=== PATIENT | male | born 1955 | race Caucasian/White ===

== ENCOUNTER 2018-05-30 15:56 | Outpatient (REF) | payer OTHER, SELFPAY ==
[2018-05-30 22:37] LABS: Abs Immature Grans 0.01 k/cumm (0.0-0.09); Absolute Basophil Count 0.03 k/cumm (0.0-0.2); Absolute Eosinophil Count 0.13 k/cumm (0.0-0.7); Absolute Lymphocyte Count 1.19 k/cumm (1.2-3.4); Absolute Monocyte Count 0.35 k/cumm (0.11-0.7); Basophils % 0.7; Eosinophils % 3.1; HCT 42.8 % (40.0-50.0); HGB 14.2 g/dL (13.5-17.5); Immature Grans % 0.2; Lymphocytes % 28.3; Mean Corp. HGB Concentration 33.2 g/dL (32.0-36.0); Mean Corpuscular Hemoglobin 30.7 pg (27.0-33.0); Mean Corpuscular Volume 92.6 fL (80-95); Mean Platelet Volume 10.7 fL (8.0-11.0); Monocytes % 8.3; Neutrophils % 59.4; Platelet Count 200 x1000/uL (130-400); RBC 4.62 m/cumm (4.50-6.00); RBC Distribution Width 13.4 % (11.8-14.1); White Blood Cell Count 4.21 k/cumm (4.4-10.8)
[2018-05-30 22:40] LABS: ALT 35 U/L (12-78); AST 26 U/L (15-37); Albumin 4.1 g/dL (3.4-5.0); Alkaline Phosphatase 47 U/L (46-116); Anion Gap 6.2 mmol/L (3-11); BUN 20 mg/dL (7-18); Bilirubin, Total 0.4 mg/dL (0.2-1.0); CO2 30.8 mmol/L (21.0-32.0); CREATININE 0.99 mg/dL (0.70-1.30); Calcium 9.3 mg/dL (8.5-10.1); Chloride 104 mmol/L (98-107); Glucose 92 mg/dL (70-100); Potassium 4.4 mmol/L (3.5-5.1); Sodium 141 mmol/L (136-145); Total Protein 6.7 g/dL (6.4-8.2)
[2018-06-03 10:15] LABS: PSA, Screening 0.5 ng/ml (0-4.5)
== END 2018-05-30 16:16 ==
LOC: NCHCN 15:56
PROVIDERS: PCP Nurse Practitioner; Visit Provider Nurse Practitioner
DX: Z00.00 Encounter for general adult medical examination without abnormal findings (principal); Z13.0 Encounter for screening for diseases of the blood and blood-forming organs and certain disorders involving the immune mechanism; Z13.228 Encounter for screening for other metabolic disorders; M53.3 Sacrococcygeal disorders, not elsewhere classified; Z12.5 Encounter for screening for malignant neoplasm of prostate; Z80.42 Family history of malignant neoplasm of prostate
CPT/HCPCS: 80053; 84153; 85025

== ENCOUNTER 2018-05-31 11:09 | Outpatient (CLI) | payer OTHER, SELFPAY ==
--- NOTE | 2018-05-31 11:20 | DI.RAD_ITS ---
SYMPTOMS/DIAGNOSIS: COCCYDYNIA, M53.3 COCCYX: No fracture, lytic or blastic bony lesion is seen. IMPRESSION: Negative coccyx.
== END 2018-05-31 11:29 ==
PROVIDERS: PCP Nurse Practitioner; Visit Provider Nurse Practitioner
DX: M53.3 Sacrococcygeal disorders, not elsewhere classified (principal)
CPT/HCPCS: 72220

== ENCOUNTER 2018-07-03 09:45 | Outpatient (REF) | payer OTHER, SELFPAY ==
[2018-07-03 13:09] LABS: Cholesterol 278 mg/dL (50-200); HDL Cholesterol 66 mg/dL (40-60); LDL CHOLESTEROL 193 mg/dL (<100); Triglyceride 127 mg/dL (30-150)
== END 2018-07-03 10:05 ==
LOC: NCHCN 09:45
PROVIDERS: PCP Nurse Practitioner; Visit Provider Family Medicine
DX: E78.5 Hyperlipidemia, unspecified (principal)
CPT/HCPCS: 80061; 83721

== ENCOUNTER 2018-11-13 11:53 | Outpatient (REF) | payer OTHER, SELFPAY ==
[2018-11-13 22:39] LABS: Calculated LDL 153; Cholesterol 230 mg/dL (50-200); HDL Cholesterol 62 mg/dL (40-60); Triglyceride 79 mg/dL (30-150)
== END 2018-11-13 12:13 ==
LOC: NCHCN 11:53
PROVIDERS: PCP Nurse Practitioner; Visit Provider Family Medicine
DX: E78.5 Hyperlipidemia, unspecified (principal)
CPT/HCPCS: 80061; 83721

== ENCOUNTER 2019-04-04 12:53 | Outpatient (REF) | payer BC, SELFPAY ==
[2019-04-04 21:15] LABS: Anion Gap 8.6 mmol/L (3-11); BUN 17 mg/dL (7-18); CO2 27.4 mmol/L (21.0-32.0); CREATININE 0.91 mg/dL (0.70-1.30); Calculated LDL 149 mg/dL; Chloride 105 mmol/L (98-107); Cholesterol 233 mg/dL (50-200); Glucose 91 mg/dL (70-100); HDL Cholesterol 54 mg/dL (40-60); Potassium 4.3 mmol/L (3.5-5.1); Sodium 141 mmol/L (136-145); Triglyceride 152 mg/dL (30-150)
[2019-04-07 11:16] LABS: PSA, Screening 0.8 ng/ml (0-4.5)
== END 2019-04-04 13:13 ==
LOC: NCHCN 12:53
PROVIDERS: PCP Nurse Practitioner; Visit Provider Family Medicine
DX: E78.5 Hyperlipidemia, unspecified (principal); Z12.5 Encounter for screening for malignant neoplasm of prostate
CPT/HCPCS: 80048; 80061; 84153

== ENCOUNTER 2019-07-10 08:25 | Outpatient (REF) | payer BC, SELFPAY ==
[2019-07-10 12:34] LABS: HCT 44.5 % (40.0-50.0); HGB 14.2 g/dL (13.5-17.5); Mean Corp. HGB Concentration 31.9 g/dL (32.0-36.0); Mean Corpuscular Hemoglobin 29.7 pg (27.0-33.0); Mean Corpuscular Volume 93.1 fL (80-95); Mean Platelet Volume 10.1 fL (8.0-11.0); Platelet Count 207 x1000/uL (130-400); RBC 4.78 m/cumm (4.50-6.00); RBC Distribution Width 13.3 % (11.8-14.1); White Blood Cell Count 3.77 k/cumm (4.4-10.8)
[2019-07-10 13:19] LABS: Hemoglobin A1C 5.6 % (3.8-5.6)
[2019-07-10 13:25] LABS: ALT 35 U/L (16-63); AST 21 U/L (15-37); Alkaline Phosphatase 50 U/L (46-116); Anion Gap 5.2 mmol/L (3-11); BUN 18 mg/dL (7-18); Bilirubin, Total 0.5 mg/dL (0.2-1.0); CO2 29.8 mmol/L (21.0-32.0); CREATININE 0.85 mg/dL (0.70-1.30); Calcium 8.7 mg/dL (8.5-10.1); Calculated LDL 155 mg/dL (<100); Chloride 107 mmol/L (98-107); Cholesterol 227 mg/dL (<200); Glucose 93 mg/dL (74-106); HDL Cholesterol 53 mg/dL (40-60); Potassium 4.5 mmol/L (3.5-5.1); Sodium 142 mmol/L (136-145); Total Protein 6.6 g/dL (6.4-8.2); Triglyceride 99 mg/dL (<150); Vitamin B12 444 pg/mL (193-986)
[2019-07-10 13:39] LABS: Vitamin D 25 Total 38.5 ng/ml (30-100)
[2019-07-11 09:16] LABS: PSA, Screening 0.7 ng/mL (0.0-4.5)
[2019-07-14 09:45] LABS: Pyridoxal 5-Phosphate (PLP), P 73 mcg/L (5-50)
== END 2019-07-10 08:45 ==
LOC: NCHCN 08:25
PROVIDERS: PCP Nurse Practitioner; Visit Provider Family Medicine
DX: Z00.00 Encounter for general adult medical examination without abnormal findings (principal); E78.5 Hyperlipidemia, unspecified; D72.819 Decreased white blood cell count, unspecified; Z12.5 Encounter for screening for malignant neoplasm of prostate; Z13.1 Encounter for screening for diabetes mellitus
CPT/HCPCS: 80053; 80061; 82306; 84153; 85027; 82607; 83036; 84207

== ENCOUNTER 2019-11-20 09:02 | Outpatient (REF) | payer BC, SELFPAY ==
[2019-11-20 21:07] LABS: Hemoglobin A1C 5.5 % (3.8-5.6)
[2019-11-20 21:25] LABS: Vitamin B12 431 pg/mL (193-986); Vitamin D 25 Total 46.7 ng/ml (30-100)
== END 2019-11-20 09:22 ==
LOC: NCHCN 09:02
PROVIDERS: PCP Family Medicine; Visit Provider Family Medicine
DX: Z00.00 Encounter for general adult medical examination without abnormal findings (principal); Z13.1 Encounter for screening for diabetes mellitus; Z13.21 Encounter for screening for nutritional disorder
CPT/HCPCS: 82306; 82607; 83036; 84207

== ENCOUNTER 2019-12-01 22:41 | Outpatient (REF) | payer BC, SELFPAY | END 2019-12-01 23:01 | LOC: NCHCN 22:41 | PROVIDERS: PCP Family Medicine; Visit Provider Family Medicine | DX: R69 Illness, unspecified (principal) | CPT/HCPCS: 80053; 80061; 84207 ==

== ENCOUNTER 2019-12-09 02:52 | Outpatient (CLI) | payer BC, SELFPAY ==
[2019-12-09 13:13] LABS: ALT 31 U/L (16-63); AST 19 U/L (15-37); Albumin 4.1 g/dL (3.4-5.0); Alkaline Phosphatase 51 U/L (46-116); Anion Gap 9.5 mmol/L (3-11); BUN 14 mg/dL (7-18); Bilirubin, Total 0.5 mg/dL (0.2-1.0); CO2 27.5 mmol/L (21.0-32.0); CREATININE 1.02 mg/dL (0.70-1.30); Calcium 8.9 mg/dL (8.5-10.1); Calculated LDL 145 mg/dL (<100); Chloride 104 mmol/L (98-107); Cholesterol 218 mg/dL (<200); Glucose 90 mg/dL (74-106); HDL Cholesterol 55 mg/dL (40-60); Potassium 4.2 mmol/L (3.5-5.1); Sodium 141 mmol/L (136-145); Total Protein 6.5 g/dL (6.4-8.2); Triglyceride 92 mg/dL (<150)
[2019-12-10 08:51] LABS: PSA, Screening 0.7 ng/mL (0.0-4.5)
[2019-12-12 11:31] LABS: Pyridoxal 5-Phosphate (PLP), P 87 mcg/L (5-50)
== END 2019-12-09 03:12 ==
PROVIDERS: PCP Family Medicine; Visit Provider Family Medicine
DX: R53.83 Other fatigue (principal); Z12.5 Encounter for screening for malignant neoplasm of prostate; Z00.00 Encounter for general adult medical examination without abnormal findings; E78.5 Hyperlipidemia, unspecified; E66.3 Overweight
CPT/HCPCS: 36415; 80053; 80061; 84153; 84207; 84443

== ENCOUNTER 2020-03-01 02:31 | Outpatient (CLI) | payer BC, SELFPAY ==
[2020-03-01 12:54] LABS: C-Reactive Protein 0.09 mg/dL (0.0-0.3)
[2020-03-04 17:23] LABS: Pyridoxal 5-Phosphate (PLP), P 15 mcg/L (5-50)
== END 2020-03-01 02:51 ==
PROVIDERS: PCP Family Medicine; Visit Provider Family Medicine
DX: R53.83 Other fatigue (principal)
CPT/HCPCS: 36415; 84207; 86140

== ENCOUNTER 2020-11-05 02:51 | Outpatient (CLI) | payer BC, SELFPAY ==
--- NOTE | 2020-11-05 | DI.MRI_ITS ---
Exam(s) MR IAC BRAIN WO/W EXAM: MR IAC BRAIN WO/W CLINICAL HISTORY: RT EAR ASYMMETRICAL HEARING LOSS,H91.8X1 TECHNIQUE: MR examination of the brain was performed according to the usual protocol with additional multi planar pre and post contrast high-resolution imaging of the region of the posterior fossa whol e brain post contrast imaging was also obtained. COMPARISON: No exams were available for comparison FINDINGS: The ventricular system is normal in appearance. There are few small areas of abnormal signal in periventricular white matter, mostly frontal, [place] age-related microvascular ischemic changes. The orbital and temporal bone structures appear intact. The internal auditory canals, semicircular c anals, and cochlea appear intact bilaterally. No abnormality of the middle ear cavity. No enhancing lesion or mass identified associated with the 8th nerves or elsewhere in the CP angle region. There is normal flow void in the vwyqal-eg-Pknaht vasculature. Diffusion-weighted imaging shows no evidence intracranial infarct. Susceptibility weighted imaging shows no evidence of intracranial hemorrhage. No enhancing lesion identified on whole brain postcontrast imaging. The pituitary is normal in size and shape as expected for age. No sellar or suprasellar mass lesion i dentified and there is no evidence of an enhancing pituitary lesion. IMPRESSION: Negative brain MRI for age, no evidence of posterior fossa or temporal bone region mass lesion or enh ancing lesion. RADIATION DOSE DELIVERED: Total DLP
[2020-11-05 14:44] LABS: Anion Gap 4.7 mmol/L (3-11); BUN 16 mg/dL (7-18); CO2 31.3 mmol/L (21.0-32.0); Calcium 8.7 mg/dL (8.5-10.1); Chloride 105 mmol/L (98-107); Glucose 89 mg/dL (74-106); Sodium 141 mmol/L (136-145)
[2020-11-05] MEDS: Normal Saline Flush 10 ML SYR IVP (15:04)
[2020-11-05] MEDS: Gadoterate meglumine 20 ML VIAL 16 ML IVP (15:05)
== END 2020-11-05 03:11 ==
PROVIDERS: PCP Family Medicine; Visit Provider Physician Assistant
DX: H91.8X1 Other specified hearing loss, right ear (principal); R90.82 White matter disease, unspecified
CPT/HCPCS: 70553; 80048

== ENCOUNTER 2020-12-02 09:25 | Outpatient (REF) | payer BC, SELFPAY ==
[2020-12-02 13:31] LABS: ALT 29 U/L (16-63); AST 22 U/L (15-37); Albumin 4.1 g/dL (3.4-5.0); Alkaline Phosphatase 49 U/L (46-116); Anion Gap 7.8 mmol/L (3-11); BUN 15 mg/dL (7-18); Bilirubin, Total 0.6 mg/dL (0.2-1.0); CO2 30.2 mmol/L (21.0-32.0); CREATININE 0.9 mg/dL (0.70-1.30); Calculated LDL 154 mg/dL (<100); Chloride 106 mmol/L (98-107); Cholesterol 234 mg/dL (<200); Glucose 90 mg/dL (74-106); HDL Cholesterol 60 mg/dL (40-60); Potassium 4.9 mmol/L (3.5-5.1); Sodium 144 mmol/L (136-145); Total Protein 6.8 g/dL (6.4-8.2); Triglyceride 101 mg/dL (<150)
[2020-12-02 22:51] LABS: PSA, Screening 0.8 ng/mL (0.0-4.5)
== END 2020-12-02 09:26 | disposition home or self-care (01) ==
LOC: NCHCN 09:25
PROVIDERS: PCP Family Medicine; Visit Provider Family Medicine
DX: Z12.5 Encounter for screening for malignant neoplasm of prostate (principal); E78.5 Hyperlipidemia, unspecified; D72.819 Decreased white blood cell count, unspecified
CPT/HCPCS: 80053; 80061; 84153

== ENCOUNTER 2022-03-31 14:17 | Outpatient (REF) | payer BC, SELFPAY ==
[2022-03-31 15:11] LABS: Anion Gap 7.5 mmol/L (3-11); BUN 15 mg/dL (7-18); CO2 29.5 mmol/L (21.0-32.0); CREATININE 0.9 mg/dL (0.70-1.30); Calcium 8.9 mg/dL (8.5-10.1); Calculated LDL 207 mg/dL (<100); Chloride 104 mmol/L (98-107); Cholesterol 296 mg/dL (<200); Estimated GFR 95.37 (mL/min/1.73m2); Glucose 95 mg/dL (74-106); HDL Cholesterol 62 mg/dL (40-60); Potassium 4.4 mmol/L (3.5-5.1); Sodium 141 mmol/L (136-145); Triglyceride 135 mg/dL (<150)
[2022-04-03 12:17] LABS: PSA, Screening 1.1 ng/mL (<=4.5)
== END 2022-03-31 14:18 | disposition home or self-care (01) ==
LOC: NCHCN 14:17
PROVIDERS: PCP Internal Medicine; Visit Provider Family Medicine
DX: E78.5 Hyperlipidemia, unspecified (principal); Z00.00 Encounter for general adult medical examination without abnormal findings; Z12.5 Encounter for screening for malignant neoplasm of prostate
CPT/HCPCS: 80048; 80061; 84153

== ENCOUNTER 2022-04-20 16:11 | Emergency (ER) | payer BC, SELFPAY ==
[2022-04-20 16:27] VITALS: BP 150/87; PULSE 60; RESP 20; TEMP 36.1; O2SAT 100
[2022-04-20 16:47] LABS: Bilirubin Negative (Negative); Blood Negative (Negative); Clarity Clear (Clear); Glucose Negative (Negative); Ketones Negative (Negative); Leukocyte Esterase Negative (Negative); Nitrite Negative (Negative); Urobilinogen 0.2 EU/dL (Up TO 0.2); pH 6.5 (5-8)
--- NOTE | 2022-04-20 17:40 | W.ED.GENAD ---
Discharge Plan Disposition Patient Disposition: HOME Condition: Stable Discharge Details Clinical Impression: Shingles Primary Care Provider: Jovany Palencia ED Provider: Liberty Olson Home Meds and New Rx's Prescriptions: New valacyclovir 1 gram tablet 1,000 mg PO TID 7 Days Qty: 21 0RF Continued hydrochlorothiazide 25 mg tablet 25 mg PO DAILY hydrocortisone [Cortisone (hydrocortisone)] 1 % cream 1 applic topical PRN PRN tamsulosin [Flomax] 0.4 mg capsule PO Label Comments: Take 1 capsule by mouth every night Discharge Instructions Instructions: Shingles (ED) Additional Instructions: Your exam appears likely consistent with shingles which is a reactivation of the chickenpox virus. This can occur when your immune system is run down the times of sleep deprivation, stress or poor nutrition. Your urinalysis sample today was normal and showed no evidence of blood or infection. Drink plenty of fluids and get plenty of rest. Alternate tylenol and motrin as needed and directed for pain. A prescription for the antiviral medication valacyclovir has been sent electronically to your pharmacy to take as directed until finished. Follow-up with your primary care doctor in 1 week. Return to the emergency department with any worsening or new concerning symptoms. Discharge Data Discharge Date/Time-TO BE ENTERED AT DEPARTURE: 04/20/22 17:50 Discharge Physician: Liberty Olson Medical Decision Making 66-year-old male presents with left-sided flank pain for the past 4 days and denies any known rash. Denies fever, urinary symptoms or cauda equina symptoms. Vitals within normal limits. Patient appears comfortable and nontoxic. He does have a small grouping of vesicles in the left lower quadrant and left lateral abdomen of which he was unaware. He has no focal deficits. He is neurovascularly intact. Suspect shingles. History of presentation does not appear consistent with nephrolithiasis, UTI or pyelonephritis. He was given 1 dose of valacyclovir here and a prescription for electronically to his pharmacy. Advised to follow up with the primary care doctor for re-evaluation. Usual and customary return precautions given prior to discharge. Medical Records Medical records reviewed: Yes I reviewed the patient's medical records. HPI General Mode of arrival: ambulatory. Date/Time Provider Initiated Documentation: 04/20/22 16:44. Limitations to Documentation: no limitations. Information obtained by: patient. HPI Narrative: Patient is a 66-year-old male presents with left-sided lower back pain for the past 4 days. Patient describes the pain as aching and constant and also notes skin sensitivity to the touch. Patient denies any known injury, fever, nausea, vomiting, chest pain, shortness breath, urinary symptoms, bowel or bladder incontinence, leg pain weakness or numbness. Patient states he has taken ibuprofen and Tylenol with minimal relief. Patient denies seeing any rash. Related Data Home Medications Medication Instructions Recorded Confirmed hydrochlorothiazide 25 mg tablet 25 mg PO DAILY 01/20/21 hydrocortisone 1 % topical cream 1 applic topical PRN PRN 01/20/21 (Cortisone (hydrocortisone)) tamsulosin 0.4 mg capsule (Flomax) cap PO 04/20/22 04/20/22 valacyclovir 1 gram tablet 1,000 mg PO TID 7 days #21 tabs 04/20/22 Previous Rx's Medication Instructions Recorded valacyclovir 1 gram tablet 1,000 mg PO TID 7 days #21 tabs 04/20/22 General Stated Complaint: FlankPain FRANCIS: 3 Review of Systems All systems reviewed & are unremarkable except as noted in HPI and below Constitutional Constitutional: Reports as per HPI, Denies chills and Denies fever(s) Eyes Eyes: Denies blurry vision ENT Ears, Nose, Mouth, and Throat: Denies dizziness, Denies sore throat and Denies throat swelling Cardiovascular Cardiovascular: Denies chest pain and Denies dyspnea Respiratory Respiratory: Denies cough and Denies dyspnea Gastrointestinal Gastrointestinal: Denies abdominal pain, Denies diarrhea and Denies vomiting Genitourinary Genitourinary: Denies hematuria and Denies dysuria Musculoskeletal Musculoskeletal: Reports back pain and Denies numbness Integumentary/Breasts Skin/Breast: Denies lesions and Denies rash Neurologic Neurologic: Denies dizziness, Denies localized weakness and Denies numbness Allergic/Immunologic Allergic/Immunologic: Denies throat swelling PFSH All Active Problems (Updated 04/20/22 @ 17:42 by Liberty Olson DO) Shingles (Acute) Vestibular neuronitis (Acute) Mixed hearing loss, unilateral (Acute) Impacted cerumen of both ears (Acute) Sensorineural hearing loss of both ears (Acute) Abnormal auditory perception (Acute) Neck pain (Acute) Asymmetrical hearing loss of right ear (Acute) Medical History (Updated 04/20/22 @ 17:42 by Liberty Olson DO) Hyperlipidemia Leukopenia Vertigo Surgical History (Updated 01/20/21 @ 09:35 by Katia Pelayo RN) History of colonoscopy with polypectomy (~09/08/14) [facility] 09/08/2014 polyp, repeat 5 years Social History Smoking/Tobacco Use Status: Never Smoking risk assessment performed?: Yes Alcohol Intake: never Substance use type: does not use Do you feel safe at home: Yes Do you feel safe in your relationship?: Yes Exam Const General: cooperative, healthy appearing and no acute distress Orientation: alert, awake and oriented x3 HENMT Head: normal to inspection Face and sinus: normal facial exam Eyes General: appearance normal, both eyes and all related structures Pupils: PERRL EOM: EOM intact bilaterally Neck Neck: normal visual inspection and No submandibular swelling Lymphatic: no lymphadenopathy noted Chest Chest: normal inspection of the chest and no tenderness Resp Effort & Inspection: normal respiratory effort and able to speak in complete sentences Auscultation: clear to auscultation bilaterally Cardio Rate: regular rate Rhythm: regular rhythm GI Inspection: normal to inspection Palpation: soft, not firm, not rigid and nontender Auscultation: hypoactive bowel sounds Male General Exam: Yes normal external exam Back/Spine/Pelvis Back: no CVA tenderness Thoracic/Lumbar Spine: thoracic and lumbar spine normal to inspection Pelvis: no pain with anterior-posterior compression Skin Full body images: 1. 1 to 2 mm erythematous cluster of small vesicles noted to the left lower quadrant. 2. There is also a 2 mm erythematous vesicle noted to the left lateral abdomen. Neuro General: patient alert, patient awake and patient oriented x3 Cognition: normal cognition Speech: speech normal Motor: muscle tone normal throughout Sensory Exam: no sensory deficits noted Extrem General: normal to inspection, full ROM, capillary refill normal, no calf tenderness bilaterally and no edema Psych Appearance: grossly normal Mental Status: mental status grossly normal Speech and Movement: speech and movement normal Affect: normal affect Course Vital Signs Vital signs: Vital Signs Temperature 96.9 F L 04/20/22 16:27 Pulse 60 04/20/22 16:27 Respiratory Rate 20 04/20/22 16:27 Blood Pressure 150/87 H 04/20/22 16:27 Pulse Oximetry 100 04/20/22 16:27 Temperature 96.9 F L 04/20/22 16:27 Temperature Source Tympanic 04/20/22 16:27 Pulse 60 04/20/22 16:27 Respiratory Rate 20 04/20/22 16:27 Respiratory Effort Non-Labored 04/20/22 17:33 Blood Pressure 150/87 H 04/20/22 16:27 Blood Pressure Position Sitting 04/20/22 16:27 Pulse Oximetry 100 04/20/22 16:27 Pain Level 5 04/20/22 16:27 Lab/Test Results Lab/Test Results: Laboratory Tests Range/Units 04/20/22 16:40 Urine Color (Yellow) Yellow Urine Clarity (Clear) Clear Urine pH (5-8) 6.5 Ur Specific [place] (1.005-1.025) 1.010 Urine Protein (Negative) mg/dL Negative Urine Ketones (Negative) mg/dL Negative Urine Blood (Negative) Negative Urine Nitrite (Negative) Negative Urine Bilirubin (Negative) Negative Urine Urobilinogen (Up TO 0.2) EU/dL 0.2 Ur Leukocyte Esterase (Negative) Negative Urine Glucose (Negative) mg/dL Negative
[2022-04-20] MEDS: valACYclovir 1,000 MG TAB 1000 MG PO (17:50)
[2022-04-20 17:51] VITALS: BP 124/80; PULSE 70; RESP 19; TEMP 36.8; O2SAT 99
== END 2022-04-20 17:50 | disposition home or self-care (01) ==
PROVIDERS: Emergency Provider Physician Assistant; PCP Internal Medicine
DX: B02.9 Zoster without complications (principal)
CPT/HCPCS: 99283; 81003

== ENCOUNTER 2022-07-24 01:54 | Outpatient (CLI) | payer BC, SELFPAY ==
--- OUTSIDE RECORDS SUMMARY | 2022-07-24 01:57 | XMS_ITS | CCD ---
Author Name Unknown Address [address] [place] [address] [phone] Organization Unknown Address [address] [place] [address] [phone] Care Team Providers Care Residential Nurse Name Role Phone ANDREZ MEEKS Attending Physician [phone] UNLISTED REQUESTED, PROVIDER - Er Physician MADY Cordoba Registered Nurse [phone] Vital Signs Vital Sign Value Unit Date/Time Recent/Initial ? BMI (Body Mass Index) 25.8 kg/m^2 04/20/2022 09: 54 Initial VS Weight Measured 185 lbs 04/20/2022 09:54 Ini tial VS Height 71 in 04/20/2022 09:54 Initial VS BSA (Body Surface Area) 2.05 m^2 04/20/2022 0 9:54 Initial VS BP Systolic 133 mmHg 04/20/2022 09:54 Initial VS BP Diastolic 93 mmHg 04/20/2022 09:54 Initia l VS Respiratory Rate 16 bpm 04/20/2022 09:54 In itial VS Heart Rate 68 bpm 04/20/2022 09:54 Initial VS O2 % BldC Oximetry 100 % 04/20/2022 09:54 Initial VS Body Temperature 36.6 degrees 04/20/2022 09:54 In itial VS Allergies Allergy Code Allergy Type Reaction Status No Known Drug Allergies 0 No known drug allergies Active Procedures Unknown or Not Available. History of Immunizations Unknown or Not Available. Problems Problem Code Start Date Resolved Date Status Hyperlipidemia [id number] 04/20/2022 Resolved BPH [id number] 04/20/2022 Resolved Results URINALYSIS WITH REFLEX CULT IF POSITIVE* - Collect Date/Time: 04/20/2022 10:40 Test Name Code Test Result Test Units Test Ref Rang e COLLECTION MODE: 31048-4 CLEAN CATCH N/A Color 5778-6 STRAW N/A yellow Appearance 5767-9 CLEAR N/A clear Glucose urine 53663-1 NEGATIVE N/A negative mg /dl Bilirubin 5770-3 NEGATIVE N/A negative Ketones 2514-8 15 N/A negative mg/dl Spec gravity 5811-5 <=1.005 N/A 1.003 - 1.03 0 pH urine 2756-5 6.0 N/A 5.0 - 7.0 Protein 46016-1 NEGATIVE N/A negative mg/dl Urobilinogen 19470-6 0.2 N/A <or= 1 EU/dl Nitrite. 5802-4 NEGATIVE N/A negative Blood 5794-3 NEGATIVE N/A negative Leukocytes. NEGATIVE N/A negative MICROSCOPIC NOT INDICAT N/A Active Medications Unknown or Not Available. Medications Administered During Visit Unknown or Not Available. Encounters Unknown or Not Available. Social History Unknown or Not Available. Patient Decision Aids Unknown or Not Available. Discharge Instructions You were admitted to [facility] on 04/20/2022 09:44 You had the following tests done:URINALYSIS WITH REFLEX CULT IF POSITIVE* You were discharged from [facility] on 04/20/2022 11:37 Should you have any questions prior to discharge, please contact a member of your healthcare team. If you have left the hospital and have any questions, please contact your primary care physician. Chief Complaint and Reason For Visit Chief Complaint Date of Onset PAIN IN LOWER BACK LEFT SIDE Function Status Unknown or Not Available. Plan of Care Unknown or Not Available. Referral/Transition of Care Unknown or Not Available.
[2022-07-24 12:10] LABS: Calculated LDL 142 mg/dL (<100); Cholesterol 216 mg/dL (<200); HDL Cholesterol 60 mg/dL (40-60); Triglyceride 71 mg/dL (<150)
== END 2022-07-24 01:55 | disposition home or self-care (01) ==
LOC: LBO 01:54
PROVIDERS: PCP Internal Medicine; Visit Provider Family Medicine
DX: E78.5 Hyperlipidemia, unspecified (principal)
CPT/HCPCS: 36415; 80061

== ENCOUNTER 2022-08-02 15:58 | Outpatient (CLI) | payer BC, SELFPAY ==
[2022-08-02 16:07] LABS: Abs Immature Grans 0.09 10^3/uL (0.0-0.06); Basophils % 0.3; Eosinophils % 0.5; HCT 42.2 % (40.0-50.0); HGB 13.9 g/dL (13.5-17.5); Immature Grans % 0.6; Lymphocytes % 5.9; MCH 30.2 pg (27.0-33.0); MCHC 32.9 % (32.0-36.0); MCV 92 fL (80-95); MPV 9.3 fL (8.0-11.0); Monocytes % 4.9; Neutrophils % 87.8; Platelet Count 334 10^3/uL (130-400); RDW 12.1 % (11.8-14.1); RDW-SD 41.5 fL; WBC 14.83 10^3/uL (4.4-10.8)
[2022-08-02 16:10] LABS: ESR 22 mm/hr (0-20)
[2022-08-02 16:13] LABS: Absolute Basophil Count 0.04 10^3/uL (0.0-0.2); Absolute Eosinophil Count 0.07 10^3/uL (0.0-0.7); Absolute Lymphocyte Count 0.87 10^3/uL (1.2-3.4); Absolute Monocyte Count 0.73 10^3/uL (0.1-0.8); Absolute Neutrophil Count 13.02 10^3/uL (1.2-6.7)
[2022-08-02 17:17] LABS: ALT 27 U/L (16-63); AST 20 U/L (15-37); Albumin 3.8 g/dL (3.4-5.0); Alkaline Phosphatase 78 U/L (46-116); BUN 16 mg/dL (7-18); Bilirubin, Total 0.5 mg/dL (0.2-1.0); CREATININE 0.9 mg/dL (0.70-1.30); Calcium 9.6 mg/dL (8.5-10.1); Chloride 100 mmol/L (98-107); Estimated GFR 94.78 (mL/min/1.73m2); Glucose 92 mg/dL (74-106); Potassium 4.8 mmol/L (3.5-5.1); Sodium 139 mmol/L (136-145); Total Protein 7.3 g/dL (6.4-8.2)
== END 2022-08-02 15:59 | disposition home or self-care (01) ==
LOC: LBO 15:58
PROVIDERS: PCP Internal Medicine; Visit Provider Family Medicine
DX: R53.83 Other fatigue (principal); R50.9 Fever, unspecified; R53.81 Other malaise; R70.0 Elevated erythrocyte sedimentation rate
CPT/HCPCS: 36415; 80053; 85652; 85025

== ENCOUNTER 2022-08-09 11:16 | Outpatient (CLI) | payer BC, SELFPAY ==
--- NOTE | 2022-08-09 11:08 | DI.RAD_ITS ---
Exam(s) XR CHEST 2V PA LATERAL EXAM: XR CHEST 2V PA LATERAL CLINICAL HISTORY: COUGH R05.8 FATIGUE AND MALAISE R53.83 TECHNIQUE: 2D digital imaging was performed of the chest. Two images were obtained. PA and lateral views were obtained. COMPARISON: No exams were available for comparison FINDINGS: MEDIASTINUM: Normal. HEART: Normal. PULMONARY VASCULATURE: Normal. LUNGS: Clear. PLEURAL SPACE: No pleural effusion or pneumothorax. BONE:Within normal limits for the patient's age. OTHER FINDINGS:Normal. IMPRESSION: No acute pulmonary findings. DATA REPOSITORY: RADIATION DOSE DELIVERED:
== END 2022-08-09 11:36 ==
LOC: DI 11:22
PROVIDERS: PCP Internal Medicine; Visit Provider Family Medicine
DX: R05.8 Other specified cough (principal); R53.83 Other fatigue; R53.81 Other malaise
CPT/HCPCS: 71046

== ENCOUNTER 2022-09-28 10:15 | Outpatient (CLI) | payer BC, SELFPAY ==
[2022-09-28 09:26] LABS: Bilirubin Negative (Negative); Blood Negative (Negative); Clarity Clear (Clear); Glucose Negative (Negative); Ketones Negative (Negative); Leukocyte Esterase Negative (Negative); Nitrite Negative (Negative); Urobilinogen 0.2 mg/dL (Up to 0.2); pH 7.5 (5-8)
[2022-09-28 09:34] LABS: Abs Immature Grans 0.02 10^3/uL (0.0-0.06); Absolute Basophil Count 0.05 10^3/uL (0.0-0.2); Absolute Eosinophil Count 0.17 10^3/uL (0.0-0.7); Absolute Lymphocyte Count 1.13 10^3/uL (1.2-3.4); Absolute Monocyte Count 0.35 10^3/uL (0.1-0.8); Absolute Neutrophil Count 2.77 10^3/uL (1.2-6.7); Basophils % 1.1; Eosinophils % 3.8; HCT 46.7 % (40.0-50.0); HGB 14.9 g/dL (13.5-17.5); Immature Grans % 0.4; Lymphocytes % 25.2; MCH 29.6 pg (27.0-33.0); MCHC 31.9 % (32.0-36.0); MCV 93 fL (80-95); MPV 9.3 fL (8.0-11.0); Monocytes % 7.8; Neutrophils % 61.7; Platelet Count 259 10^3/uL (130-400); RBC 5.04 10^6/uL (4.36-5.78); RDW 13.5 % (11.8-14.1); RDW-SD 45.8 fL; WBC 4.49 10^3/uL (4.4-10.8)
[2022-09-28 10:11] LABS: Iron 122 ug/dL (65-175); Total Iron Binding Capacity 349 ug/dL (250-450); Transferrin Sat 35 % (20-55)
[2022-09-28 10:31] LABS: Vitamin D 25 Total 45.1 ng/mL (30-100)
[2022-09-28 10:37] LABS: ALT 54 U/L (16-63); AST 23 U/L (15-37); Albumin 4.2 g/dL (3.4-5.0); Alkaline Phosphatase 63 U/L (46-116); BUN 13 mg/dL (7-18); Bilirubin, Total 0.4 mg/dL (0.2-1.0); CREATININE 0.9 mg/dL (0.70-1.30); Calculated LDL 181 mg/dL (<100); Chloride 103 mmol/L (98-107); Cholesterol 264 mg/dL (<200); Estimated GFR 94.78 (mL/min/1.73m2); Folate 7.9 ng/mL (8.6-20.0); Glucose 101 mg/dL (74-106); HDL Cholesterol 58 mg/dL (40-60); LDH 162 U/L (85-227); Lipase 29 U/L (16-77); Potassium 4.2 mmol/L (3.5-5.1); Sodium 140 mmol/L (136-145); TSH 1.77 uIU/mL (0.36-3.74); Total Protein 7.8 g/dL (6.4-8.2); Triglyceride 127 mg/dL (<150); Vitamin B12 386 pg/mL (193-986)
[2022-09-28 11:07] LABS: Amylase 60 U/L (25-115); C-Reactive Protein < 0.05 mg/dL (0.0-0.3); FREE T4 0.99 ng/dL (0.76-1.46); GGT 21 U/L (15-85); Uric Acid 4.3 mg/dL (3.5-7.2)
[2022-09-28 14:24] LABS: Ferritin 279 ng/mL (26-388)
[2022-09-28 20:23] LABS: T3,Free 3.8 pg/mL (2.8-5.3)
[2022-09-28 21:11] LABS: Parathyroid Hormone,Intact 45 pg/mL (19-88)
[2022-09-29 10:41] LABS: Lyme Ab w Rflx to Lyme Confirm Negative (Negative)
[2022-09-29 14:56] LABS: Albumin 64.1 % (55.8-66.1); Albumin g/dL 4.7 g/dL (3.6-5.2); Immunotyping, Serum (See Note); Total Protein 7.3 g/dL (6.3-8.2)
[2022-10-03 16:15] LABS: Testosterone, Free 13.6 ng/dL (3.47-13.0); Testosterone, Total 669 ng/dL (240-950)
[2022-10-04 14:08] LABS: HDL Particles 42 mcmol/L; LDL Cholesterol (NMR) 176 mg/dL; LDL Particles 2189 nmol/L
== END 2022-09-28 10:16 | disposition home or self-care (01) ==
LOC: LBO 10:15
PROVIDERS: PCP Internal Medicine; Visit Provider Internal Medicine
DX: N40.1 Benign prostatic hyperplasia with lower urinary tract symptoms (principal); R61 Generalized hyperhidrosis; E78.01 Familial hypercholesterolemia; N28.1 Cyst of kidney, acquired
CPT/HCPCS: 36415; 80053; 80061; 82306; 83690; 83704; 84402; 84403; 81003; 82150; 82607; 82728; 82746; 82977; 83540; 83550; 83615; 83970; 84154; 84155; 84165; 84439; 84443; 84481; 84550; 85025; 86140; 86320; 86618

== ENCOUNTER 2023-02-13 10:15 | Outpatient (CLI) | payer BC, SELFPAY ==
[2023-02-13 09:25] LABS: HCT 45.1 % (40.0-50.0); HGB 14.7 g/dL (13.5-17.5); MCH 30.1 pg (27.0-33.0); MCHC 32.6 % (32.0-36.0); MCV 92 fL (80-95); MPV 9.6 fL (8.0-11.0); Platelet Count 183 10^3/uL (130-400); RBC 4.89 10^6/uL (4.36-5.78); RDW-SD 44.2 fL; WBC 3.73 10^3/uL (4.4-10.8)
[2023-02-13 10:14] LABS: Hemoglobin A1C 5.8 % (<5.7)
[2023-02-13 10:39] LABS: ALT 44 U/L (16-63); AST 27 U/L (15-37); Albumin 3.9 g/dL (3.4-5.0); Alkaline Phosphatase 52 U/L (46-116); Anion Gap 5.4 mmol/L (3-11); BUN 15 mg/dL (7-18); Bilirubin, Total 0.7 mg/dL (0.2-1.0); CO2 29.6 mmol/L (21.0-32.0); Calcium 8.6 mg/dL (8.5-10.1); Calculated LDL 178 mg/dL (<100); Chloride 103 mmol/L (98-107); Cholesterol 257 mg/dL (<200); Estimated GFR 83.52 (mL/min/1.73m2); Ferritin 183 ng/mL (26-388); Folate 13.6 ng/mL (8.6-20.0); Glucose 99 mg/dL (74-106); HDL Cholesterol 59 mg/dL (40-60); Potassium 4.5 mmol/L (3.5-5.1); Sodium 138 mmol/L (136-145); Triglyceride 102 mg/dL (<150); Vitamin B12 451 pg/mL (193-986)
[2023-02-13 17:50] LABS: CRP, High Sensitivity 1.44 mg/L (See Note)
== END 2023-02-13 10:16 | disposition home or self-care (01) ==
LOC: LBO 10:15
PROVIDERS: PCP Internal Medicine; Visit Provider Internal Medicine
DX: E78.01 Familial hypercholesterolemia (principal); R61 Generalized hyperhidrosis; N28.1 Cyst of kidney, acquired; N40.1 Benign prostatic hyperplasia with lower urinary tract symptoms; Z12.5 Encounter for screening for malignant neoplasm of prostate; R79.89 Other specified abnormal findings of blood chemistry; R73.09 Other abnormal glucose; R26.89 Other abnormalities of gait and mobility
CPT/HCPCS: 36415; 80053; 80061; 84153; 85027; 86141; 82607; 82728; 82746; 83036

== ENCOUNTER 2023-04-26 13:18 | Outpatient (CLI) | payer BC, SELFPAY ==
[2023-04-26 08:54] LABS: Abs Immature Grans 0.02 10^3/uL (0.0-0.06); Absolute Basophil Count 0.04 10^3/uL (0.0-0.2); Absolute Eosinophil Count 0.19 10^3/uL (0.0-0.7); Absolute Lymphocyte Count 1.01 10^3/uL (1.2-3.4); Absolute Monocyte Count 0.28 10^3/uL (0.1-0.8); Basophils % 1.1; Eosinophils % 5.4; HCT 44.3 % (40.0-50.0); HGB 14.7 g/dL (13.5-17.5); Immature Grans % 0.6; Lymphocytes % 28.5; MCH 30.4 pg (27.0-33.0); MCHC 33.2 % (32.0-36.0); MCV 92 fL (80-95); MPV 9.3 fL (8.0-11.0); Monocytes % 7.9; Neutrophils % 56.5; Platelet Count 189 10^3/uL (130-400); RBC 4.83 10^6/uL (4.36-5.78); RDW 12.7 % (11.8-14.1); RDW-SD 43.1 fL; WBC 3.54 10^3/uL (4.4-10.8)
[2023-04-26 09:03] LABS: Hemoglobin A1C 5.4 % (<5.7)
[2023-04-26 09:38] LABS: Vitamin D 25 Total 36.1 ng/mL (30-100)
[2023-04-26 09:42] LABS: ALT 24 U/L (16-63); AST 25 U/L (15-37); Alkaline Phosphatase 51 U/L (46-116); Anion Gap 5.1 mmol/L (3-11); BUN 17 mg/dL (7-18); Bilirubin, Total 0.6 mg/dL (0.2-1.0); CO2 29.9 mmol/L (21.0-32.0); CREATININE 0.9 mg/dL (0.70-1.30); Calcium 9.2 mg/dL (8.5-10.1); Chloride 107 mmol/L (98-107); Estimated GFR 94.78 (mL/min/1.73m2); Folate 8.2 ng/mL (8.6-20.0); Glucose 101 mg/dL (74-106); Potassium 4.6 mmol/L (3.5-5.1); Sodium 142 mmol/L (136-145); TSH 2.22 uIU/mL (0.36-3.74); Total Protein 7.2 g/dL (6.4-8.2); Vitamin B12 307 pg/mL (193-986)
[2023-04-26 17:54] LABS: CRP, High Sensitivity 0.97 mg/L (See Note)
[2023-04-30 16:02] LABS: Apolipoprotein B, Serum 112 mg/dL; Beta VLDL Cholesterol Not Detected mg/dL (<15); Beta VLDL Triglycerides Not Detected mg/dL (<15); Cholesterol, Total, CDC 225 mg/dL; Chylomicron Cholesterol Not Detected; Chylomicron Triglycerides Not Detected; HDL Cholesterol, CDC 51 mg/dL (>=40); LDL Cholesterol 134 mg/dL; LDL Triglycerides 30 mg/dL (<=50); Lp(a) Cholesterol 19 mg/dL (<5); LpX Not detected; Triglycerides, CDC 99 mg/dL; VLDL Cholesterol 21 mg/dL (<30); VLDL Triglycerides 57 mg/dL (<120)
== END 2023-04-26 13:19 | disposition home or self-care (01) ==
LOC: LBO 13:24
PROVIDERS: PCP Internal Medicine; Visit Provider Internal Medicine
DX: E78.01 Familial hypercholesterolemia (principal); N40.1 Benign prostatic hyperplasia with lower urinary tract symptoms; R61 Generalized hyperhidrosis; N28.1 Cyst of kidney, acquired; D12.6 Benign neoplasm of colon, unspecified; R73.09 Other abnormal glucose
CPT/HCPCS: 36415; 80053; 80061; 82306; 83698; 86141; 82172; 82607; 82664; 82746; 83036; 84443; 85025

== ENCOUNTER 2024-03-18 11:07 | Outpatient (CLI) | payer BC, SELFPAY ==
[2024-03-18 11:41] LABS: Abs Immature Grans 0.02 10^3/uL (0.0-0.06); Absolute Basophil Count 0.04 10^3/uL (0.0-0.2); Absolute Eosinophil Count 0.09 10^3/uL (0.0-0.7); Absolute Lymphocyte Count 1.24 10^3/uL (1.2-3.4); Absolute Monocyte Count 0.41 10^3/uL (0.1-0.8); Absolute Neutrophil Count 3.16 10^3/uL (1.2-6.7); Basophils % 0.8 %; Eosinophils % 1.8 %; HCT 45.7 % (40.0-50.0); HGB 14.7 g/dL (13.5-17.5); Immature Grans % 0.4 %; MCHC 32.2 % (32.0-36.0); MCV 93 fL (80-95); MPV 9.5 fL (8.0-11.0); Monocytes % 8.3 %; Neutrophils % 63.7 %; Platelet Count 215 10^3/uL (130-400); RDW 12.9 % (11.8-14.1); RDW-SD 44.5 fL; WBC 4.96 10^3/uL (4.4-10.8)
[2024-03-18 11:52] LABS: Hemoglobin A1C 5.8 % (<5.7)
[2024-03-18 12:06] LABS: ALT 31 U/L (16-63); AST 25 U/L (15-37); Albumin 4.2 g/dL (3.4-5.0); Alkaline Phosphatase 54 U/L (46-116); Amylase 51 U/L (25-115); Anion Gap 4.7 mmol/L (3-11); BUN 18 mg/dL (7-18); CO2 30.3 mmol/L (21.0-32.0); Calcium 9.1 mg/dL (8.5-10.1); Chloride 106 mmol/L (98-107); Estimated GFR 83.01 (mL/min/1.73m2); FREE T4 1.09 ng/dL (0.76-1.46); GGT 16 U/L (15-85); Glucose 97 mg/dL (74-106); LDH 176 U/L (85-227); Lipase 28 U/L (16-77); Potassium 4.6 mmol/L (3.5-5.1); Sodium 141 mmol/L (136-145); TSH 2.47 uIU/Ml (0.36-3.74); Total Protein 7.6 g/dL (6.4-8.2)
[2024-03-18 12:43] LABS: Ferritin 176 ng/mL (26-388); Folate 19.3 ng/mL (8.6-20.0); Vitamin B12 378 pg/mL (193-986); Vitamin D 25 Total 35.2 ng/mL (30-100)
[2024-03-18 12:52] LABS: Iron 133 ug/dL (65-175); Total Iron Binding Capacity 372 ug/dL (250-450); Transferrin Sat 36 % (20-55)
[2024-03-18 18:49] LABS: CEA 1.4 ng/mL (See Note); Parathyroid Hormone,Intact 56 pg/mL (19-88)
[2024-03-18 20:08] LABS: CRP, High Sensitivity 1.65 mg/L (See Note)
[2024-03-19 10:23] LABS: Lyme Ab w Rflx to Lyme Confirm Negative (Negative)
[2024-03-19 10:26] LABS: CA 19-9 9 U/mL (<35)
[2024-03-19 16:12] LABS: Albumin 66.3 % (55.8-66.1); Albumin g/dL 4.8 g/dL (3.6-5.2); Immunotyping, Serum (See Note); Total Protein 7.2 g/dL (6.3-8.2)
[2024-03-24 16:54] LABS: Apolipoprotein B, Serum 123 mg/dL; Beta VLDL Cholesterol Not Detected mg/dL (<15); Beta VLDL Triglycerides Not Detected mg/dL (<15); Cholesterol, Total, CDC 249 mg/dL; Chylomicron Cholesterol Not Detected; Chylomicron Triglycerides Not Detected; HDL Cholesterol, CDC 52 mg/dL (>=40); LDL Cholesterol 154 mg/dL; LDL Triglycerides 36 mg/dL (<=50); Lp(a) Cholesterol 16 mg/dL (<5); LpX Not detected; Triglycerides, CDC 134 mg/dL; VLDL Cholesterol 27 mg/dL (<30); VLDL Triglycerides 78 mg/dL (<120)
== END 2024-03-18 11:08 | disposition home or self-care (01) ==
LOC: LBO 11:07
PROVIDERS: PCP Internal Medicine; Visit Provider Internal Medicine
DX: E78.01 Familial hypercholesterolemia (principal); N40.1 Benign prostatic hyperplasia with lower urinary tract symptoms; R61 Generalized hyperhidrosis; N28.1 Cyst of kidney, acquired; D12.6 Benign neoplasm of colon, unspecified; R73.09 Other abnormal glucose
CPT/HCPCS: 36415; 80053; 80061; 82306; 83690; 83698; 86141; 82150; 82172; 82378; 82607; 82664; 82728; 82746; 82977; 83036; 83540; 83550; 83615; 83970; 84154; 84155; 84165; 84439; 84443; 84481; 85025; 86301; 86320; 86359; 86360; 86618

== ENCOUNTER 2024-10-08 10:10 | Outpatient (CLI) | payer BC, SELFPAY ==
[2024-10-08 10:20] LABS: Calculated LDL 143 mg/dL (<100); Cholesterol 232 mg/dL (<200); HDL Cholesterol 62 mg/dL (>or=40); Triglyceride 139 mg/dL (<150)
[2024-10-08 10:52] LABS: Hemoglobin A1C 5.7 % (<5.7)
== END 2024-10-08 10:11 | disposition home or self-care (01) ==
LOC: LBO 10:11
PROVIDERS: PCP Internal Medicine; Visit Provider Family Medicine
DX: E78.5 Hyperlipidemia, unspecified (principal); R73.03 Prediabetes
CPT/HCPCS: 36415; 80061; 83036

== ENCOUNTER 2025-04-30 09:43 | Outpatient (CLI) | payer BC, SELFPAY ==
[2025-04-30 10:21] LABS: Abs Immature Grans 0.03 10^3/uL (0.0-0.06); HCT 43.0 % (40.0-50.0); HGB 14.3 g/dL (13.5-17.5); Immature Grans % 0.6 %; MCH 30.2 pg (27.0-33.0); MCHC 33.3 % (32.0-36.0); MCV 91 fL (80-95); MPV 9.2 fL (8.0-11.0); Platelet Count 198 10^3/uL (130-400); RBC 4.73 10^6/uL (4.36-5.78); RDW 12.7 % (11.8-14.1); RDW-SD 42.1 fL; WBC 4.79 10^3/uL (4.4-10.8)
[2025-04-30 10:23] LABS: Glucose Negative (Negative)
[2025-04-30 11:58] LABS: Hemoglobin A1C 5.6 % (<5.7)
[2025-04-30 12:02] LABS: Amylase 68 U/L (30-118); Iron 114 ug/dL (65-175); Lipase 28 U/L (<53); Total Iron Binding Capacity 364 ug/dL (250-425); Transferrin Sat 31 % (20-55)
[2025-04-30 12:03] LABS: LDH 180 U/L (120-246)
[2025-04-30 12:04] LABS: ALT 23 U/L (10-49); AST 27 U/L (<34); Albumin 4.8 g/dL (3.4-5.0); Alkaline Phosphatase 54 U/L (46-116); Anion Gap 6.1 mmol/L (3-11); BUN 15 mg/dL (9-23); Bilirubin, Total 0.60 mg/dL (0.2-1.2); CO2 29.9 mmol/L (20.0-31.0); Calcium 9.1 mg/dL (8.3-10.6); Chloride 104 mmol/L (98-107); GGT 20 U/L (<73); Glucose 93 mg/dL (74-106); Potassium 4.1 mmol/L (3.5-5.1); Sodium 140 mmol/L (136-145); Total Protein 7.4 g/dL (5.7-8.2)
[2025-04-30 12:06] LABS: Ferritin 130 ng/mL (11-307); Vitamin D 25 Total 26 ng/mL (30-100)
[2025-04-30 12:07] LABS: TSH 2.38 uIU/mL (0.55-4.78)
[2025-04-30 12:08] LABS: Folate 22.6 ng/mL (>5.38); Vitamin B12 506 pg/mL (211-911)
[2025-04-30 22:29] LABS: CRP, High Sensitivity 0.95 mg/L (See Note)
[2025-04-30 22:44] LABS: T3,Free 3.4 pg/mL (2.8-5.3)
[2025-05-01 10:31] LABS: Lyme Ab w Rflx to Lyme Confirm Negative (Negative)
[2025-05-01 15:30] LABS: Albumin 67.0 % (55.8-66.1); Albumin g/dL 4.8 g/dL (3.6-5.2); Alpha 1 g/dL 0.30 g/dL (0.15-0.40); Alpha 2 g/dL 0.70 g/dL (0.50-1.00); Beta g/dL 0.70 g/dL (0.60-1.20); Gamma g/dL 0.70 g/dL (0.60-1.60); Total Protein 7.2 g/dL (6.3-8.2)
[2025-05-06 14:03] LABS: Apolipoprotein B, Serum 134 mg/dL; Beta VLDL Cholesterol Not Detected mg/dL (<15); Beta VLDL Triglycerides Not Detected mg/dL (<15); Cholesterol, Total, CDC 275 mg/dL; Chylomicron Cholesterol Not Detected; Chylomicron Triglycerides Not Detected; HDL Cholesterol, CDC 51 mg/dL (>=40); LpX Not detected; Triglycerides, CDC 154 mg/dL; VLDL Triglycerides 89 mg/dL (<120)
== END 2025-04-30 09:44 | disposition home or self-care (01) ==
LOC: LBO 09:43
PROVIDERS: PCP Internal Medicine; Visit Provider Internal Medicine
DX: E78.019 Familial hypercholesterolemia, unspecified (principal); N40.1 Benign prostatic hyperplasia with lower urinary tract symptoms; R61 Generalized hyperhidrosis; N28.1 Cyst of kidney, acquired; D12.6 Benign neoplasm of colon, unspecified; R73.09 Other abnormal glucose
CPT/HCPCS: 36415; 80053; 80061; 82306; 83690; 86141; 81003; 82150; 82172; 82607; 82664; 82728; 82746; 82977; 83036; 83540; 83550; 83615; 83970; 84154; 84155; 84165; 84439; 84443; 84481; 85025; 86320; 86618